=== PATIENT | female | born 1965 | race Two or more races ===

== ENCOUNTER 2017-12-02 11:56 | Emergency (ER) | payer BC ==
[~2017-12-02] VITALS: Ht 167.6 cm; Wt 85.3 kg
[2017-12-02 12:06] VITALS: BP 129/92
== END 2017-12-02 12:41 | disposition home or self-care (01) ==
LOC: ER 12:01
DX: J32.8 Other chronic sinusitis (principal); I10 Essential (primary) hypertension; Z88.2 Allergy status to sulfonamides; Z88.5 Allergy status to narcotic agent; Z90.710 Acquired absence of both cervix and uterus; Z87.891 Personal history of nicotine dependence
CPT/HCPCS: 99283; A4606; Z7610

== ENCOUNTER → 2018-12-20 | Emergency (ER) | payer MEDICARE, MEDICAID ==
[~2018-12-20] VITALS: Ht 167.6 cm; Wt 86.2 kg
[~2018-12-20] MED LIST: ASPIRIN 81 MG TAB.CHEW ONE; ASPIRIN 81 MG TAB.CHEW PO ONE; METOPROLOL TARTRATE 25 MG TABLET PO ONE; METOPROLOL TARTRATE 50 MG TABLET ONE
--- NOTE | 2018-12-20 23:51 | NUR ---
PICKED UP FOR HEAD CT
--- NOTE | 2018-12-21 00:16 | NUR ---
CXR DONE AT BEDSIDE
[2018-12-21 00:29] LABS: BASOPHILS # (AUTO) 0.1 /CMM (0.0-0.2); BASOPHILS % (AUTO) 2.2 % (0.0-2.0); EOSINOPHILS % (AUTO) 4.4 % (0.0-6.0); HEMATOCRIT 43 % (33-45); HEMOGLOBIN 14.7 g/dL (11.5-14.8); LYMPHOCYTES # (AUTO) 1.5 /CMM (0.8-4.8); MEAN CORPUSCULAR HGB CONC 35 g/dl (31.0-36.0); MEAN CORPUSCULAR VOLUME 88 fL (82-100); MONOCYTES # (AUTO) 0.6 /CMM (0.1-1.30); MONOCYTES % (AUTO) 10.6 % (2.0-12.0); NEUTROPHILS # (AUTO) 3.5 /CMM (1.8-8.9); NEUTROPHILS % (AUTO) 57.8 % (43.0-81.0); PLATELET COUNT (AUTO) 175 /CMM (150-450); RED BLOOD CELL COUNT(AUTO) 4.82 MIL/uL (4.0-5.2)
[2018-12-21 00:35] LABS: CARBON DIOXIDE 27 mmol/L (21-32); CHLORIDE 104 mmol/L (98-107); CREATININE 0.8 mg/dL (0.6-1.3); GLUCOSE 145 mg/dL (74-106); POTASSIUM 3.5 mmol/L (3.5-5.1); SODIUM SERUM 139 mmol/L (136-145); UREA NITROGEN, BLOOD 9 mg/dL (7-18)
[2018-12-21 00:40] LABS: CALCIUM, SERUM 8.5 mg/dL (8.5-10.1)
[2018-12-21 04:17] VITALS: BP 133/89
--- NOTE | 2018-12-21 04:20 | NUR ---
Patient discharged to home in stable condition. Written and verbal after care instructions given. Patient verbalizes understanding of instruction. VSS. Pt. ambulatory with a steady gait. IV removed. Catheter intact and site benign. Pressure and 4x4 applied to site. No bleeding noted.
== END | disposition home or self-care (01) ==
LOC: ER 23:37
DX: R07.89 Other chest pain (principal); I10 Essential (primary) hypertension; J40 Bronchitis, not specified as acute or chronic; F17.200 Nicotine dependence, unspecified, uncomplicated; Z90.710 Acquired absence of both cervix and uterus; Z98.890 Other specified postprocedural states; Z88.2 Allergy status to sulfonamides; Z88.5 Allergy status to narcotic agent
CPT/HCPCS: 36415; 71045; 80048; 84484 ×2; 85025; 93005; 99284; 99406; J7030